=== PATIENT | female | born 1940 | race Caucasian/White ===

== ENCOUNTER 2017-01-09 19:06 | Inpatient (IN) | payer OTHER, MEDICAID ==
[~2017-01-09] VITALS: Ht 152.4 cm; Wt 88.0 kg
[2017-01-09 19:06] VITALS: BP_SYST 145
[2017-01-09] MEDS ORDERED: NACL 0.9% 1,000 ML IV ONE (19:15)
[2017-01-09 19:29] LABS: BASOPHILS % (AUTO) 0.5 % (0.0-2.0); EOSINOPHILS # (AUTO) 0.4 K/uL (0.0-0.4); EOSINOPHILS % (AUTO) 5.9 % (0.0-4.0); LYMPHOCYTES # (AUTO) 1.9 K/uL (1.0-5.5); LYMPHOCYTES % (AUTO) 29.9 % (20.5-51.5); MEAN CORPUSCULAR HEMOGLOBIN 33 pg (27-31); MEAN CORPUSCULAR HGB CONC 34 % (32-36); MEAN CORPUSCULAR VOLUME 97 fL (79.0-98.0); MONOCYTES # (AUTO) 0.7 K/uL (0.0-1.0); MONOCYTES % (AUTO) 10.5 % (1.7-9.3); NEUTROPHILS # (AUTO) 3.4 K/uL (1.8-7.7); NEUTROPHILS % (AUTO) 53.2 % (40.0-70.0); PLATELET COUNT (AUTO) 201 K/uL (130-430); RED BLOOD CELL COUNT(AUTO) 3.39 MIL/uL (4.2-6.2); RED CELL DISTRIBUTION WIDTH 13.1 % (9.0-15.0); WHITE BLOOD COUNT (AUTO) 6.4 K/uL (4.8-10.8)
[2017-01-09 19:38] LABS: ANION GAP 1 (5-15); CALCIUM 8.2 mg/dL (8.4-11.0); CHLORIDE 97 mmol/L (98-107); CREATININE 1.37 mg/dL (0.55-1.30); POTASSIUM 4.6 mmol/L (3.5-5.1); SODIUM SERUM 131 mmol/L (136-145); UREA NITROGEN, BLOOD 27 mg/dL (8-21)
[2017-01-09 19:39] LABS: ALANINE AMINOTRANSFERASE 21 U/L (12-78); ALBUMIN 2.6 g/dL (3.4-4.8); ASPARTATE AMINOTRANSFERASE 18 U/L (10-37); TOTAL BILIRUBIN 0.3 mg/dL (0.0-1.0); TOTAL PROTEIN, SERUM 7.3 g/dL (6.4-8.3)
[2017-01-09 19:42] LABS: GLUCOSE 555 mg/dL (70-99)
[2017-01-09] MEDS ORDERED: INSULIN REGULAR, HUMAN 10 UNITS/0.1 ML INJ IVP ONE (20:15)
[2017-01-09] MEDS ORDERED: NOR10 PO (20:17)
[2017-01-09] MEDS ORDERED: MULT-300 PO (20:17)
[2017-01-09] MEDS ORDERED: HYDR-4100 PO (20:17)
[2017-01-09] MEDS ORDERED: NA P118E RC (20:17)
[2017-01-09] MEDS ORDERED: SSREG SUBCUT (20:17)
[2017-01-09] MEDS ORDERED: ANT30 PO (20:17)
[2017-01-09] MEDS ORDERED: SENN8.6T19 PO (20:17)
[2017-01-09] MEDS ORDERED: ATEN50TA PO (20:17)
[2017-01-09] MEDS ORDERED: LEVE500T53 PO (20:17)
[2017-01-09] MEDS ORDERED: GABA-531 PO (20:17)
[2017-01-09] MEDS ORDERED: INSU100V9 SUBCUT ×2 (20:17)
[2017-01-09] MEDS ORDERED: LIP80 PO (20:17)
[2017-01-09] MEDS ORDERED: PRO40 PO (20:17)
[2017-01-09] MEDS ORDERED: PARO-41 PO (20:17)
[2017-01-09] MEDS ORDERED: DOCU-144 PO (20:17)
[2017-01-09] MEDS ORDERED: MAGN400O4 PO (20:17)
[2017-01-09] MEDS ORDERED: LACT10SO66 PO (20:17)
[2017-01-09] MEDS ORDERED: CRAN450C PO (20:17)
[2017-01-09] MEDS ORDERED: AMIT10TA6 PO (20:17)
[2017-01-09] MEDS ORDERED: DULR10 RC (20:17)
[2017-01-09] MEDS ORDERED: LOSA100T11 PO (20:17)
[2017-01-09] MEDS ORDERED: ZOLPIDEM TARTRATE 5 MG TABLET PO PRN (21:15)
[2017-01-09] MEDS ORDERED: HYDROcodone/ACETAMIN 10-325 MG TAB PO PRN (21:15)
[2017-01-09] MEDS ORDERED: ONDANSETRON HCL 4 MG/2 ML VIAL IVP PRN (21:15)
[2017-01-09] MEDS ORDERED: INSULIN GLARGINE 100 UNITS/ML 10 ML VIAL SUBCUT ONE (21:15)
[2017-01-09] MEDS ORDERED: INSULIN ASPART 100 UNITS/ML, 10 ML VIAL SUBCUT ONE (21:15)
[2017-01-09] MEDS ORDERED: ACETAMINOPHEN 325 MG TABLET PO PRN (21:15)
[2017-01-09] MEDS ORDERED: MAG-AL HYDROX/SIMETH 30 ML UDC PO PRN (21:15)
[2017-01-09 22:00] VITALS: BP_SYST 132
[2017-01-09 23:00] VITALS: BP_SYST 117
[2017-01-09] MEDS ORDERED: INSULIN ASPART 100 UNITS/ML, 10 ML VIAL (NovoLOG) SUBCUT PRN (23:00)
[2017-01-09] MEDS: NACL 0.9% 1,000 ML IV SCH (23:32)
[2017-01-10] VITALS (12 sets, daily range): BP systolic 116–136
[2017-01-10] MEDS: GABAPENTIN 300 MG CAPSULE PO SCH ×4 (00:01→21:24)
[2017-01-10] MEDS ORDERED: levETIRAcetam 500 MG TABLET ONE (00:08)
[2017-01-10] MEDS ORDERED: GABAPENTIN 300 MG CAPSULE ONE (00:09)
[2017-01-10 06:46] LABS: BASOPHILS % (AUTO) 0.3 % (0.0-2.0); EOSINOPHILS # (AUTO) 0.4 K/uL (0.0-0.4); EOSINOPHILS % (AUTO) 5.1 % (0.0-4.0); HEMATOCRIT 30.3 % (36-48); HEMOGLOBIN 10.1 g/dL (12.0-16.0); LYMPHOCYTES # (AUTO) 1.8 K/uL (1.0-5.5); LYMPHOCYTES % (AUTO) 23.2 % (20.5-51.5); MEAN CORPUSCULAR HEMOGLOBIN 33 pg (27-31); MEAN CORPUSCULAR HGB CONC 33 % (32-36); MEAN CORPUSCULAR VOLUME 99 fL (79.0-98.0); MONOCYTES # (AUTO) 0.7 K/uL (0.0-1.0); MONOCYTES % (AUTO) 9.7 % (1.7-9.3); NEUTROPHILS # (AUTO) 4.8 K/uL (1.8-7.7); NEUTROPHILS % (AUTO) 61.7 % (40.0-70.0); PLATELET COUNT (AUTO) 166 K/uL (130-430); RED BLOOD CELL COUNT(AUTO) 3.07 MIL/uL (4.2-6.2); RED CELL DISTRIBUTION WIDTH 13.4 % (9.0-15.0); WHITE BLOOD COUNT (AUTO) 7.7 K/uL (4.8-10.8)
[2017-01-10 07:00] LABS: ALANINE AMINOTRANSFERASE 12 U/L (12-78); ALBUMIN 2.5 g/dL (3.4-4.8); ANION GAP 4 (5-15); ASPARTATE AMINOTRANSFERASE 20 U/L (10-37); CHLORIDE 102 mmol/L (98-107); CREATININE 1.01 mg/dL (0.55-1.30); GLUCOSE 291 mg/dL (70-99); POTASSIUM 4.4 mmol/L (3.5-5.1); SODIUM SERUM 136 mmol/L (136-145); TOTAL BILIRUBIN 0.3 mg/dL (0.0-1.0); TOTAL PROTEIN, SERUM 7.1 g/dL (6.4-8.3); UREA NITROGEN, BLOOD 20 mg/dL (8-21)
[2017-01-10] MEDS: PANTOPRAZOLE SODIUM 40 MG TAB PO SCH (09:45)
[2017-01-10] MEDS: SENNOSIDES 8.6 MG TABLET PO PRN (09:46)
[2017-01-10] MEDS: LOSARTAN POTASSIUM 50 MG TABLET (COZAAR) PO SCH (09:47)
[2017-01-10] MEDS: LACTULOSE 20 GM/30 ML UDC PO SCH (09:47)
[2017-01-10] MEDS: ATENOLOL 50 MG TABLET (TENORMIN) PO SCH (09:48)
[2017-01-10] MEDS: DOCUSATE SODIUM 100 MG CAPSULE PO SCH ×2 (09:48→21:24)
[2017-01-10] MEDS: PARoxetine HCL 20 MG TABLET PO SCH (09:48)
[2017-01-10] MEDS: levETIRAcetam 500 MG TABLET PO SCH ×3 (09:49→21:24)
[2017-01-10] MEDS: NACL 0.9% 1,000 ML IV SCH ×2 (11:08→23:20)
[2017-01-10] MEDS: INSULIN ASPART 100 UNITS/ML, 10 ML VIAL (NovoLOG) SUBCUT PRN ×3 (12:21→21:32)
[2017-01-10] MEDS: metFORMIN HCL 500 MG TABLET PO SCH (17:25)
[2017-01-10] MEDS: AMITRIPTYLINE HCL 10 MG TABLET (ELAVIL) PO SCH (21:23)
[2017-01-10] MEDS: ATORVASTATIN 20 MG TABLET PO SCH (21:24)
[2017-01-11] VITALS: BP_SYST 156
[2017-01-11 04:13] VITALS: BP_SYST 148
[2017-01-11 07:20] LABS: BASOPHILS % (AUTO) 0.4 % (0.0-2.0); EOSINOPHILS # (AUTO) 0.5 K/uL (0.0-0.4); EOSINOPHILS % (AUTO) 4.9 % (0.0-4.0); HEMOGLOBIN 11.7 g/dL (12.0-16.0); LYMPHOCYTES # (AUTO) 2.8 K/uL (1.0-5.5); MEAN CORPUSCULAR HEMOGLOBIN 33 pg (27-31); MEAN CORPUSCULAR HGB CONC 34 % (32-36); MEAN CORPUSCULAR VOLUME 99 fL (79.0-98.0); MONOCYTES # (AUTO) 0.9 K/uL (0.0-1.0); MONOCYTES % (AUTO) 8.9 % (1.7-9.3); NEUTROPHILS # (AUTO) 5.4 K/uL (1.8-7.7); NEUTROPHILS % (AUTO) 56.8 % (40.0-70.0); PLATELET COUNT (AUTO) 197 K/uL (130-430); RED BLOOD CELL COUNT(AUTO) 3.55 MIL/uL (4.2-6.2); RED CELL DISTRIBUTION WIDTH 13.1 % (9.0-15.0); WHITE BLOOD COUNT (AUTO) 9.6 K/uL (4.8-10.8)
[2017-01-11 07:57] LABS: ANION GAP 5 (5-15); CALCIUM 8.6 mg/dL (8.4-11.0); CHLORIDE 104 mmol/L (98-107); CREATININE 0.76 mg/dL (0.55-1.30); FREE T4 (FREE THYROXINE) 0.7 ng/dL (0.6-1.6); GLUCOSE 73 mg/dL (70-99); POTASSIUM 4.1 mmol/L (3.5-5.1); SODIUM SERUM 139 mmol/L (136-145); THYROID STIMULATING HORMONE 4.35 uIu/mL (0.34-4.82); UREA NITROGEN, BLOOD 12 mg/dL (8-21)
[2017-01-11 08:00] VITALS: BP_SYST 149
[2017-01-11] MEDS: LACTULOSE 20 GM/30 ML UDC PO SCH (08:19)
[2017-01-11] MEDS: PANTOPRAZOLE SODIUM 40 MG TAB PO SCH (08:19)
[2017-01-11] MEDS: LOSARTAN POTASSIUM 50 MG TABLET (COZAAR) PO SCH (08:20)
[2017-01-11] MEDS: DOCUSATE SODIUM 100 MG CAPSULE PO SCH ×2 (08:20→21:06)
[2017-01-11] MEDS: GABAPENTIN 300 MG CAPSULE PO SCH ×3 (08:21→21:06)
[2017-01-11] MEDS: ATENOLOL 50 MG TABLET (TENORMIN) PO SCH (08:21)
[2017-01-11] MEDS: metFORMIN HCL 500 MG TABLET PO SCH ×2 (08:21→17:18)
[2017-01-11] MEDS: levETIRAcetam 500 MG TABLET PO SCH ×2 (08:21→21:06)
[2017-01-11] MEDS: PARoxetine HCL 20 MG TABLET PO SCH (08:21)
[2017-01-11] MEDS: INSULIN ASPART 100 UNITS/ML, 10 ML VIAL (NovoLOG) SUBCUT PRN ×3 (11:57→21:11)
[2017-01-11] MEDS: NACL 0.9% 1,000 ML IV SCH (12:01)
[2017-01-11 12:12] VITALS: BP_SYST 130
[2017-01-11 15:30] VITALS: BP_SYST 143
[2017-01-11] MEDS: SENNOSIDES 8.6 MG TABLET PO PRN (17:18)
[2017-01-11] MEDS: HYDROcodone/ACETAMIN 5-325 MG TAB (NORCO/ VICODIN) PO PRN (21:05)
[2017-01-11] MEDS: ATORVASTATIN 20 MG TABLET PO SCH (21:06)
[2017-01-11] MEDS: AMITRIPTYLINE HCL 10 MG TABLET (ELAVIL) PO SCH (21:06)
[2017-01-11 22:47] VITALS: BP_SYST 152
[2017-01-12] VITALS (7 sets, daily range): BP systolic 128–148
[2017-01-12] MEDS: NACL 0.9% 1,000 ML IV SCH ×2 (03:39→12:52)
[2017-01-12] MEDS: HYDROcodone/ACETAMIN 5-325 MG TAB (NORCO/ VICODIN) PO PRN ×2 (06:50→15:34)
[2017-01-12] MEDS: LACTULOSE 20 GM/30 ML UDC PO SCH (08:23)
[2017-01-12] MEDS: PANTOPRAZOLE SODIUM 40 MG TAB PO SCH (08:23)
[2017-01-12] MEDS: GABAPENTIN 300 MG CAPSULE PO SCH ×3 (08:23→21:30)
[2017-01-12] MEDS: levETIRAcetam 500 MG TABLET PO SCH ×2 (08:23→21:30)
[2017-01-12] MEDS: DOCUSATE SODIUM 100 MG CAPSULE PO SCH ×2 (08:23→21:30)
[2017-01-12] MEDS: metFORMIN HCL 500 MG TABLET PO SCH ×2 (08:23→17:04)
[2017-01-12] MEDS: LOSARTAN POTASSIUM 50 MG TABLET (COZAAR) PO SCH (08:24)
[2017-01-12] MEDS: PARoxetine HCL 20 MG TABLET PO SCH (08:26)
[2017-01-12] MEDS: ATENOLOL 50 MG TABLET (TENORMIN) PO SCH (08:27)
[2017-01-12] MEDS ORDERED: ASPIRIN 81 MG TABLET(ECOTRIN) PO ONE (12:30)
[2017-01-12] MEDS: AMITRIPTYLINE HCL 10 MG TABLET (ELAVIL) PO SCH (21:30)
[2017-01-12] MEDS: ATORVASTATIN 20 MG TABLET PO SCH (21:30)
[2017-01-12] MEDS: INSULIN ASPART 100 UNITS/ML, 10 ML VIAL (NovoLOG) SUBCUT PRN (21:39)
[2017-01-13] MEDS: NACL 0.9% 1,000 ML IV SCH (02:38)
[2017-01-13 03:31] VITALS: BP_SYST 154
[2017-01-13] MEDS: DOCUSATE SODIUM 100 MG CAPSULE PO SCH (08:45)
[2017-01-13] MEDS: levETIRAcetam 500 MG TABLET PO SCH (08:45)
[2017-01-13] MEDS: GABAPENTIN 300 MG CAPSULE PO SCH (08:45)
[2017-01-13] MEDS: PANTOPRAZOLE SODIUM 40 MG TAB PO SCH (08:45)
[2017-01-13] MEDS: metFORMIN HCL 500 MG TABLET PO SCH (08:46)
[2017-01-13] MEDS: PARoxetine HCL 20 MG TABLET PO SCH (08:46)
[2017-01-13] MEDS: ATENOLOL 50 MG TABLET (TENORMIN) PO SCH (08:47)
[2017-01-13] MEDS: LOSARTAN POTASSIUM 50 MG TABLET (COZAAR) PO SCH (08:49)
[2017-01-13] MEDS: LACTULOSE 20 GM/30 ML UDC PO SCH (08:49)
[2017-01-13] MEDS ORDERED: ASPIRIN 81 MG TABLET(ECOTRIN) PO SCH (09:00)
[2017-01-13 12:00] VITALS: BP_SYST 140
[2017-01-13 15:04] VITALS: BP_SYST 135
== END 2017-01-13 16:30 | DRG 872 ==
LOC: SED 19:06 → STU 20:45 → SIC 21:18 → STU 01-10 11:26 → SMU 01-11 15:34
PROVIDERS: ADMIT Internal Medicine; ATTEND Internal Medicine
DX: A41.9 Sepsis, unspecified organism (principal); E44.0 Moderate protein-calorie malnutrition; E87.1 Hypo-osmolality and hyponatremia; I69.351 Hemiplegia and hemiparesis following cerebral infarction affecting right dominant side; N17.9 Acute kidney failure, unspecified; E11.65 Type 2 diabetes mellitus with hyperglycemia; E66.01 Morbid (severe) obesity due to excess calories; F32.9 Major depressive disorder, single episode, unspecified; I12.9 Hypertensive chronic kidney disease with stage 1 through stage 4 chronic kidney disease, or unspecified chronic kidney disease; E78.5 Hyperlipidemia, unspecified; K21.9 Gastro-esophageal reflux disease without esophagitis; N18.9 Chronic kidney disease, unspecified; E11.22 Type 2 diabetes mellitus with diabetic chronic kidney disease; M79.604 Pain in right leg; E86.0 Dehydration; Z68.37 Body mass index [BMI] 37.0-37.9, adult; Z79.899 Other long term (current) drug therapy; Z79.01 Long term (current) use of anticoagulants; Z79.4 Long term (current) use of insulin
CPT/HCPCS: 36415; 73502; 73560-TC; 80048; 80053; 82009-TC; 82962; 83036; 83605; 84439; 84443-TC; 85025; 87040-TC; 87081; 87086; 93971; 97110-GP; 97530-GP; J1815; J7030